=== PATIENT | female | born 1955 | race Two or more races ===

== ENCOUNTER 2022-02-01 09:33 | Emergency (ER) | payer MEDICARE, OTHER ==
[~2022-02-01] VITALS: Ht 157.5 cm; Wt 55.3 kg
--- NOTE | 2022-02-01 09:40 | NUR ---
BIBS for feeling more depressed than usual, requesting psych admission to [facility]. Denies SI/HI. In room air and denies SOB. Respiration regular and unlabored. Will continue to monitor the patient.
--- NOTE | 2022-02-01 10:17 | NUR ---
COVID ANTIGEN SWAB DONE AND URINE COLLECTED. SPECIMENS ARE SENT TO THE LAB.
[2022-02-01 11:54] LABS: BILIRUBIN,URINE NEGATIVE (NEGATIVE); COLOR,URINE YELLOW (YELLOW); LEUKOCYTE ESTERASE ,URINE NEGATIVE (NEGATIVE); NITRITE, URINE NEGATIVE (NEGATIVE); PROTEIN,URINE NEGATIVE (NEGATIVE); UGLUCOSE NEGATIVE (NEGATIVE); UROBILINOGEN,URINE 0.2 EU/dL (0.2)
[2022-02-01 12:22] LABS: BASOPHILS # (AUTO) 0.1 K/uL (0.0-0.2); BASOPHILS % (AUTO) 0.6 % (0.0-2.0); EOSINOPHILS % (AUTO) 2.2 % (0.0-6.0); HEMATOCRIT 40 % (33-45); LYMPHOCYTES # (AUTO) 1.8 K/uL (0.8-4.8); LYMPHOCYTES % (AUTO) 16.4 % (20.0-44.0); MEAN CORPUSCULAR HGB CONC 32 g/dl (31.0-36.0); MEAN CORPUSCULAR VOLUME 89 fL (82-100); MONOCYTES % (AUTO) 9.2 % (2.0-12.0); NEUTROPHILS # (AUTO) 8.1 K/uL (1.8-8.9); NEUTROPHILS % (AUTO) 71.6 % (43.0-81.0); PLATELET COUNT (AUTO) 237 K/uL (150-450); RED BLOOD CELL COUNT(AUTO) 4.55 MIL/uL (4.0-5.2); WHITE BLOOD COUNT (AUTO) 11.3 K/uL (4.3-11.0)
[2022-02-01 12:29] LABS: CALCIUM, SERUM 8.7 mg/dL (8.5-10.1); CARBON DIOXIDE 29 mmol/L (21-32); CHLORIDE 99 mmol/L (98-107); CREATININE 0.9 mg/dL (0.6-1.3); GLUCOSE 151 mg/dL (74-106); POTASSIUM 4.6 mmol/L (3.5-5.1); SODIUM SERUM 136 mmol/L (136-145); UREA NITROGEN, BLOOD 22 mg/dL (7-18)
--- NOTE | 2022-02-01 12:30 | NUR ---
Easily Directable and able to follow commands. Lunch given-tolerated well Awaiting acceptance to psych facility a- voluntary
[2022-02-01 12:37] LABS: ALANINE AMINOTRANSFERASE 31 U/L (12-78); ALBUMIN 3.4 g/dL (3.4-5.0); ALKALINE PHOSPHATASE 76 U/L (46-116); ASPARTATE AMINOTRANSFERASE 20 U/L (15-37); BILIRUBIN,DIRECT 0.1 mg/dL (0.0-0.2); BILIRUBIN,TOTAL 0.3 mg/dL (0.2-1.0); TOTAL PROTEIN, SERUM 7.5 g/dL (6.4-8.2)
[2022-02-01 12:38] LABS: ACETAMINOPHEN < 0 ug/ml (10-30); ALCOHOL, BLOOD < 3 mg/dL (0-0)
--- NOTE | 2022-02-01 16:52 | NUR ---
FAXED CLINICALS TO [facility]
--- NOTE | 2022-02-01 17:26 | NUR ---
PT HAS BEEN ACCEPTED TO [facility] AND WAS NOTIFIED THAT THEY WILL SET UP TRANSPORT NO ETA WAS GIVEN AT THIS TIME
--- NOTE | 2022-02-01 18:00 | NUR ---
Pt picked up by [facility] for voluntary admit to psychiatric facility
[2022-02-01 18:14] VITALS: BP 127/89
== END 2022-02-01 18:16 ==
LOC: ER 09:49
DX: R45.851 Suicidal ideations (principal); M06.9 Rheumatoid arthritis, unspecified; F32.A Depression, unspecified; Z20.822 Contact with and (suspected) exposure to COVID-19
CPT/HCPCS: 36415; 80048-TC; 80076-TC; 85025-TC; C9803; G0480